=== PATIENT | female | born 1975 | race Caucasian/White ===

== ENCOUNTER 2016-04-21 11:08 | Emergency (ER) | payer OTHER ==
[~2016-04-21] VITALS: Ht 160 cm; Wt 66.2 kg
[~2016-04-21 11:08] MED LIST: BENADRYL50 MG PO; PERMETHRIN5% TP
[2016-04-21 11:16] VITALS: BP 145/73
--- NOTE | 2016-04-21 11:45 | NUR ---
PT AMBULATED TO ER BED 02.
--- NOTE | 2016-04-21 12:00 | NUR ---
40/F BIB SELF FOR C/O LLQ ABD PAIN RADIATING TO BACK AND BURNING ON URINATION X 3 DAYS, PT. ALSO REPORTS RASH AND PAIN TO BLE. PT AMB TO RESTROOM FOR URINE SAMPLE.
[2016-04-21] MEDS ORDERED: ONDANSETRON 4 MG/2 ML VIAL IVP ONE (12:20)
[2016-04-21] MEDS ORDERED: KETOROLAC 30 MG/ML VIAL IVP ONE (12:20)
[2016-04-21] MEDS ORDERED: NACL 0.9% 1,000 ML IV ONE (12:20)
--- NOTE | 2016-04-21 12:27 | NUR ---
PT AMBULATE TO RESTROOM AGAIN.
[2016-04-21] MEDS ORDERED: cefTRIAXone 1,000 MG VIAL ONE (12:40)
--- NOTE | 2016-04-21 12:45 | NUR ---
22G IV TO LAC. IV PATENT AND INTACT. MEDS GIVEN PER APR. PT JEB WELL.
[2016-04-21 14:29] VITALS: BP 131/70
--- NOTE | 2016-04-21 14:30 | NUR ---
Patient discharged with v/s stable. Written and verbal after care instructions given and explained. Patient alert, oriented and verbalized understanding of instructions. Ambulatory with steady gait. All questions addressed prior to discharge. ID band removed. Patient advised to follow up with PMD. Rx of CIPRO, ZOFRAN AND MOTRIN given. Patient educated on indication of medication including possible reaction and side effects. Opportunity to ask questions provided and answered.
== END 2016-04-21 14:30 | disposition home or self-care (01) ==
LOC: MED 11:08
DX: N12 Tubulo-interstitial nephritis, not specified as acute or chronic (principal); Z88.5 Allergy status to narcotic agent
CPT/HCPCS: 81002; 81025; 96365; 96375; 99285; J0696; J1885; J2405; J7030; J7060